=== PATIENT | female | born 1975 | race Caucasian/White ===

== ENCOUNTER 2016-12-01 21:36 | Emergency (ER) | payer SELFPAY ==
[2016-12-01] MEDS ORDERED: LORAZEPAM 1 MG PREPACK#4 BTL TAKEHOME ONE (22:06)
--- NOTE | 2016-12-01 22:07 | EDPHY ---
H & P Time Seen by Provider: 12/01/16 22:04 HPI/ROS: CHIEF COMPLAINT: HISTORY OF PRESENT ILLNESS: 41-year-old female complaining of acute right wrist pain after she fell on outstretched right wrist 7 days ago. Reproducible pain with range of motion and after using her hands. No paresthesia. No proximal distal pain or injury. No discoloration. PHYSICAL EXAM (Prior to examination, patient consented to physical exam, hands were washed and my usual and customary physical exam procedures followed) 1) GENERAL: Well-developed, well-nourished, alert and oriented. Appears to be in no acute distress. 2) HEAD: Normocephalic 3) HEENT: Pupils equal, round, reactive to light bilaterally. 4) LUNGS: Breathing comfortably. 5) MUSCULOSKELETAL: Soft compartments. Normal coloration. Mild tenderness to palpation distal radius. 6) SKIN: Normal coloration. 7) VASCULAR: pulses and cap refill present are brisk 8) NEUROLOGIC: Radial, ulnar, median nerve function intact with no deficits appreciated on exam DIFFERENTIAL DIAGNOSIS: in no particular order including but not limited to fracture, sprain, compartment syndrome Right wrist, 4 views. History: Pain after fall. Findings: Normal mineralization and alignment. No evidence for acute fracture or dislocation. No significant joint narrowing, periarticular erosion, periarticular spurring. Impression: Normal radiograph right wrist. Dictated By: Augusto Johnson MD images reviewed by myself Procedure: Splint A Velcro volar splint was applied by ER product development technician. After application of the splint I returned and re-examined the patient. The splint was adequately immobilizing the joint and distal to the splint the patient's circulation and sensation were intact. Patient shows no signs of compartment syndrome. Was given orthopedic precautions. Smoking Status: Never smoked Constitutional: Initial Vital Signs Temperature (C) 36.8 C 12/01/16 21:45 Heart Rate 77 12/01/16 21:45 Respiratory Rate 16 12/01/16 21:45 Blood Pressure 115/71 12/01/16 21:45 O2 Sat (%) 97 12/01/16 21:45 O2 Delivery Mode Room Air Allergies/Adverse Reactions: apples Allergy (Uncoded 12/01/16 21:52) gluten Allergy (Uncoded 12/01/16 21:52) peaches Allergy (Uncoded 12/01/16 21:52) pears Allergy (Uncoded 12/01/16 21:52) plums Allergy (Uncoded 12/01/16 21:52) Home Medications: Medication Instructions Recorded NK [No Known Home Meds] 12/01/16 MDM/Departure - Depart Disposition: Home, Routine, Self-Care Clinical Impression: Right wrist sprain Qualifiers: Encounter type: initial encounter Qualified Code(s): S63.501A - Unspecified sprain of right wrist, initial encounter Condition: Good Instructions: Wrist Sprain (ED) Additional Instructions: Return to the ER immediately if you experience discoloration, have worsening pain, numbness, tingling, or any other symptoms that concern you. If you received x-rays in the emergency department today, be advised, that ligamentous , tendon, muscular, and other non-bony injury cannot be fully ruled out. Try to keep your affected extremity elevated above the level of your chest, and keep cold packs on the affected area, for the next 48 hours. Referrals: Loraine Hopper MD [Medical Doctor] - 5-7 days, call for appt. (Dr. Loraine Hopper is a hand surgeon)
[2016-12-01 22:59] VITALS: BP 110/76; PULSE 70; RESP 14; TEMP 97.9; O2SAT 96
== END 2016-12-01 23:08 | disposition home or self-care (01) ==
DX: S63.501A Unspecified sprain of right wrist, initial encounter (principal); W18.39XA Other fall on same level, initial encounter
CPT/HCPCS: L3807